=== PATIENT | male | born 1950 | race Caucasian/White ===

== ENCOUNTER 2018-11-22 09:58 | Day surgery (SDC) | payer MEDICARE ==
[~2018-11-22] VITALS: Ht 195.6 cm; Wt 121.1 kg
[~2018-11-22 09:58] MED LIST: BETAPACE 80 MG80 MG PO; COZAAR50 MG PO; METFORMIN HCL500 M1; NEURONTIN800 MG PO; OMEPRAZOLE40 MG PO; PRADAXA150 MG PO
[2018-11-22 10:29] LABS: BASOPHILS 0.2 % (0-2); EOSINOPHILS 0.7 % (0-7); HEMATOCRIT 43.7 % (42.0-54.0); HEMOGLOBIN 14.9 g/dL (13.5-17.5); IMMATURE GRANULOCYTES 0.4 % (0-5); LYMPHOCYTES 36.6 % (15-50); MCH 30.5 pg (26.0-34.0); MCHC 34.1 g/dL (31.0-37.0); MCV 89.4 fL (80.0-100.0); MEAN PLATELET VOLUME 9.5 fL (7.4-10.4); MONOCYTES 7.4 % (2-11); NEUTROPHILS 54.7 % (40-80); PLATELET COUNT 184 10x3/uL (130-400); RBC 4.89 10x6/uL (4.20-6.10); WBC 8.1 10x3/uL (4.8-10.8)
[2018-11-22 10:38] LABS: CALC OSMOLALITY 284 mosm/kg (275-300); CALCIUM 9.2 mg/dL (8.5-10.1); CARBON DIOXIDE 32.5 mmol/L (21.0-32.0); CHLORIDE - SERUM 107 mmol/L (98-107); CREATININE - SERUM 0.9 mg/dL (0.6-1.3); GLUCOSE 153 mg/dL (74-106); POTASSIUM - SERUM 4.4 mmol/L (3.5-5.1); SODIUM 142 mmol/L (136-145); UREA NITROGEN 10 mg/dL (7-18); eGFR NON AFRICAN AMERICAN 89 mL/min (90-120)
[2018-11-22 11:03] VITALS: BP 149/87; Ht 195.6 cm; Wt 121.1 kg
[2018-11-22] MEDS ORDERED: HYDROCODON-ACE1 EA10 PO (13:24)
--- NOTE | 2018-11-22 14:47 | NUR ---
IV REMOVED TOLERATED FULL LIQ. NO PAIN OR NAUSEA
--- NOTE | 2018-11-24 16:09 | OP ---
PATIENT NAME: MARTINA COULTER MEDICAL RECORD: [id number] :48 LOCATION:D.OPS ADMISSION DATE: SURGEON: GEOVANY JUNIOR MD DATE OF OPERATION: 11/22/2018 PREOPERATIVE DIAGNOSES: 1. Gallstones. 2. Ventral hernia. 3. Hypertension. 4. Diabetes mellitus. 5. Atrial fibrillation. POSTOPERATIVE DIAGNOSES: 1. Gallstones. 2. Ventral hernia. 3. Hypertension. 4. Diabetes mellitus. 5. Atrial fibrillation. 6. Acute cholecystitis. PROCEDURES: 1. Laparoscopic cholecystectomy. 2. Ventral hernia repair. SURGEON: Geovany Junior MD REPORT OF PROCEDURE: The patient's abdomen was prepped and draped in sterile fashion. A semicircular incision was made on the inferior aspect of the umbilicus. Electrocautery was used to dissect through the subcutaneous tissues and the hernia defect. The fascial defect was approximately 3 cm in greatest diameter. We freed up the hernia sac to the fascial edges. We then bluntly entered the abdominal cavity and placed #0 Vicryls on the fascia bilaterally. A 12-mm trocar was then inserted and the abdomen was insufflated. Under direct visualization, a 5-mm trocar was placed in the epigastrium and two more 5-mm trocars were placed in the right subcostal region. The gallbladder was elevated and noted to be markedly inflamed with acute inflammatory adhesions present. These were taken down carefully with sharp dissection. We eventually were able to dissect down and get our critical view of safety, seeing the cystic artery and the cystic duct. These were clipped proximally and distally, and ligated in standard fashion. The gallbladder was then taken off the liver bed using electrocautery and placed into an EndoCatch bag. Any bleeding from the liver bed was then treated with electrocautery. We irrigated out the right upper quadrant and assured there was no sign of any bleeding or bile leakage. At this point, the ports and insufflation were then removed. The gallbladder was taken out through the umbilicus. The umbilical fascia where the ventral hernia was present was reapproximated with multiple interrupted #0 Prolenes transversally. The wound was then irrigated out thoroughly with normal saline and the incisions were infused with a total of 20 mL of 0.25% Marcaine plain. The umbilicus and subcutaneous tissues were all tacked down using multiple interrupted 3-0 Vicryls and the skin incisions were closed with running subcutaneous 3-0 Monocryl. COMPLICATIONS: None. CONDITION: Stable. OPERATIVE REPORT [id number] MARTINA COULTER ANESTHESIA: General endotracheal and local. BLOOD LOSS: Minimal. TRANSINT:[id number] Voice Confirmation ID: [id number] DOCUMENT ID: [id number] GEOVANY JUNIOR MD at 1609 CC: LYLA WARD MD [id number] DICTATION DATE: 11/22/18 1329 TRADE PROMOTION ANALYST: 11/22/18 1402 [facility] [place] 11/22/18 [facility] [address] [place] [address]
== END 2018-11-22 15:48 | disposition home or self-care (01) ==
LOC: D.OPS 09:58 → D.PAN 12:00 → D.OPS 15:48
PROVIDERS: ATTEND Surgery
DX: K80.12 Calculus of gallbladder with acute and chronic cholecystitis without obstruction (principal); K43.9 Ventral hernia without obstruction or gangrene; I10 Essential (primary) hypertension; E11.9 Type 2 diabetes mellitus without complications; I48.91 Unspecified atrial fibrillation; Z01.812 Encounter for preprocedural laboratory examination

== ENCOUNTER → 2019-05-19 09:36 | Outpatient (CLI) | payer MEDICARE ==
[2018-11-22 11:03] VITALS: BMI 31.7
[~2019-05-19 09:36] MED LIST changes: +GLUCOPHAGE500 MG PO; +HYDROCODON-ACE1 EA10 PO
== END ==
LOC: D.HCCARDIO 09:30
PROVIDERS: ATTEND Internal Medicine Cardiovascular Disease
DX: I48.91 Unspecified atrial fibrillation (principal)

== ENCOUNTER 2019-06-08 06:31 | Outpatient (CLI) | payer MEDICARE ==
[~2019-06-08] VITALS: Ht 193 cm; Wt 122.7 kg
--- NOTE | ~2019-06-08 | HEMODYNAMI ---
PATIENT:MARTINA COULTER MEDICAL RECORD: [id number] : 48 LOCATION:DJdCAT ADMISSION DATE: 06/08/19 Generatedon:06/08/20199:02 Patient name: MARTINA COULTER Patient #: [id number] : 1950 Date of study: 06/08/2019 Page: Of Hemodynamic Procedure Report Patient Data Patient Demographics Procedure consent was obtained First Name: MARTINA Gender: Male Last Name: YFN : 1950 Middle Initial: C Age: 68 year(s) Patient #: [id number] Race: Unknown SSN: [id number] Additional ID: [id number] Contact details [address]: [address] [place] [address] State: [place] City: [place] Zip code: [address] Past Medical History Allergies: No known allergies Admission Admission Data Admission Date: 06/08/2019 Admission Time: 6:31 Arrival Date: 06/08/2019 Arrival Time: 0:00 Admit Source: Other Insurance Payor: Medicare, Private health insurance [facility] #: [id number] Height (in.): 75.98 BSA: 2.51 (m2) Height (cm.): 193 BMI: 32.75 (kg/m2) Weight (lbs.): 268.97 Weight (kg.): 122 Lab Results Lab Result Date: 06/08/2019 Lab Result Time: 0:00 Biochemistry Name Units Result Min Max BUN mg/dl 10 --(-*--)-- 7 18 Creatinine mg/dl 0.8 --(-*--)-- 0.6 1.3 CBC Name Units Result Min Max Hemoglobin g/dl 15.4 --(-*--)-- 13.5 17.5 Procedure Procedure Types Cath Procedure Diagnostic Procedure LHC LHC w/Coronaries Procedure Description Procedure Date Procedure Date: 06/08/2019 Procedure Start Time: 8:44 Procedure End Time: 8:59 Procedure Staff Name Function Franklyn White MD Performing Physician Amee Yarbrough RN Radiology Physician Assistant Yue Stark RT Monitor Marilee Reynolds RT Scrub Procedure Data Cath Procedure Fluoroscopy Diagnostic fluoroscopy Total fluoroscopy Time: 3.5 time: 3.5 min min Diagnostic fluoroscopy Total fluoroscopy dose: 913 dose: 913 mGy mGy Contrast Material Contrast Material Type Amount (ml) Isovue 300 51 Entry Location Entry Primary Successful Side Size Upsize Upsize Entry Closure Moreno ccessful Closure Location (Fr) 1 (Fr) 2 (Fr) Remarks Device Remarks Radial Right 6 Fr Mechanical artery Short Compression Estimated blood loss: 5 ml Diagnostic catheters Device Type Used For End Catheter Placement DIAGNOSTIC Kenji 110cm Procedure 5Fr catheter ([id number]) DIAGNOSTIC AR MOD 5Fr Procedure Catheter ([id number]) Procedure Complications No complications Procedure Medications Medication Administration Route Dosage 0.9% NaCl I.V. 100 ml/hr Oxygen etCO2 Nasal cannula 2 l/min Lidocaine 2% added to field 20 Heparin Flush Bag added to field 2 bags (1000units/500ml NS) Radial Cocktail added to field 1 syringe (Verapamil 2mg/Nitro 400mcg/Heparin 1500units) Versed I.V. 2 mg Fentanyl I.V. 50 mcg Fentanyl I.V. 50 mcg Hemodynamics Rest BSA: 2.51 (m2) HGB: 15.4 (g/dl) O2 Consumption: Estimated: 271.35 (ml/min) O2 Co nsumption indexed: Estimated:108.11 (ml/min/m) Heart Rate: 49 (bpm) Pressure Samples Time Site Value (mmHg) Purpose Heart Use Rate(bpm) 8:48 LV 123/4,7 Snapshot 68 8:49 LV 111/3,7 Snapshot 72 Gradients Valve Time Site Site Mean SEP/DFP Peak To Heart Use 1 2 (mmHg) (sec/min) Peak Rate (mmHg) (bpm) Aortic 8:49 LV AO 75 Snapshots Pre Cath Intra NCS Post Cath Vital Signs Time Heart Resp SPO2 etCO2 NIBP (mmHg) Rhythm Pain Sedation Rate (ipm) (%) (mmHg) Status Level (bpm) 8:27:42 58 21 99 32.3 135/81(110) A-Fib 0 (11) 10(A) , No pain 8:31:46 54 17 93 30.8 132/86(121) A-Fib 0 (11) 10(A) , No pain 8:36:00 60 15 90 34.6 122/80(105) A-Fib 0 (11) 10(A) , No pain 8:40:12 52 12 96 42.1 125/80(91) A-Fib 0 (11) 10(A) , No pain 8:44:12 55 13 96 23.3 102/90(95) A-Fib 0 (11) 10(A) , No pain 8:49:11 100 12 97 39.8 Measuring A-Fib 0 (11) 9(A) , No pain 8:49:13 104 12 96 39.8 117/69(90) A-Fib 0 (11) 9(A) , No pain 8:53:25 67 11 93 7.5 111/69(82) A-Fib 0 (11) 10(A) , No pain 8:57:36 57 10 95 39.1 112/74(88) A-Fib 0 (11) 10(A) , No pain Medications Time Medication Route Dose Verified Delivered Reason Notes Ef fectiveness by by 8:27:21 0.9% NaCl I.V. 100 Franklyn Amee used for ml/hr Christopher Yarbrough overnight caregiver 8:27:27 Oxygen etCO2 2 l/min Franklyn Amee used for Nasal Christopher Yarbrough procedure cannula RN 8:27:32 Lidocaine 2% added 20ml Franklyn Franklyn for local to vial Christopher White MD anesthetic field 8:27:37 Heparin Flush added 2 bags Franklyn Franklyn used for Bag to Christopher White MD procedure (1000units/500ml field NS) 8:27:43 Radial Cocktail added 1 Franklyn Franklyn used for (Verapamil to syringe Christopher White MD procedure 2mg/Nitro field 400mcg/Heparin 1500units) 8:43:20 Versed I.V. 2 mg Franklyn Amee for Christopher Yarbrough sedation RN 8:43:32 Fentanyl I.V. 50 mcg Franklyn Amee for Christopher Yarbrough sedation RN 8:47:47 Fentanyl I.V. 50 mcg Franklyn Amee for Christopher Yarbrough sedation store operations associate Log Time Note 8:18:29 Admit Source: Other 8:18:34 Patient Height : 75.98 inches 8:18:38 Patient Weight : 268.97 lbs 8:18:46 Insurance Payor : Private health insurance, Medicare 8:18:50 Arrival Date: 06/08/2019 12:00:00 AM 8:26:36 Vital chart was started 8:26:49 Diagnostic Cath Status : Elective 8:27:21 0.9% NaCl 100 ml/hr I.V. was administered by Amee Yarbrough RN; used for procedure; Verbal order read back and verified. 8:27:27 Oxygen 2 l/min etCO2 Nasal cannula was administered by Amee Yarbrough RN; used for procedure; Verbal order read back and verified. 8:27:32 Lidocaine 2% 20ml vial added to field was administered by Franklyn White MD; for local anesthetic; Verbal order read back and verified. 8:27:37 Heparin Flush Bag (1000units/500ml NS) 2 bags added to field was administered by Franklyn White MD; used for procedure; Verbal order read back and verified. 8:27:43 Radial Cocktail (Verapamil 2mg/Nitro 400mcg/Heparin 1500units) 1 syringe added to field was administered by Franklyn White MD; used for procedure; Verbal order read back and verified. 8:33:26 Lab Result : Hemoglobin 15.4 g/dl 8:33:26 Lab Result : Creatinine 0.8 mg/dl 8:33:26 Lab Result : BUN 10 mg/dl 8:34:34 Procedure Status Elective Heart Cath (OP). 8:34:39 Amee Yarbrough RN sent for patient. Start room use. 8:35:15 Time tracking: Regular hours (M-F 7:00 - 5:00) 8:35:20 Plan of Care:Hemodynamics will remain stable., Cardiac rhythm will remain stable., Comfort level will be maintained., Respiratory function will remain adequate., Patient/ family verbilizes understanding of procedure., Procedure tolerated without complication., Recovers from procedure without complications.. 8:35:31 Patient received from Pre/Post Procedure Room to CCL 2 Alert and oriented. Tansferred to table in Supine position. 8:35:37 Signed procedure consent form obtained from patient. 8:35:38 Warm blankets applied, and yoshi hugger turned on for patient comfort. 8:35:39 Correct patient and procedure confirmed by team. 8:35:39 ECG and BP/O2 sat monitors applied to patient. 8:35:40 Baseline sample Acquired. 8:35:47 Rhythm: atrial fibrillation 8:35:49 Full Disclosure recording started 8:35:54 H&P Date Dictated: 06/08/2019 Within 30 days and on chart., H&P Addendum completed by physician on day of procedure. (MUST COMPLETE FOR ALL OUTPATIENTS). 8:35:56 Pre-procedure instructions explained to patient. 8:35:58 Family in waiting room. 8:35:59 Patient NPO since Midnight. 8:36:06 Patient allergic to No known allergies 8:36:10 Is the patient allergic to Iodine/contrast media? No. 8:36:11 Was the patient premedicated? Yes 8:36:13 Is patient on blood thinner?Yes 8:36:52 Pradaxa 2 days ago. 8:37:16 Patient diabetic? Yes. 8:37:21 If diabetic: On Metformin? Yes 8:37:31 If on Metformin: Last Dose? 06/07/2019 8:37:38 Snore? Yes 8:37:39 Sleep apnea? No 8:37:44 Dentures? No ? 8:37:48 Patient pain scale 0/10 ?. 8:38:40 IV patent on arrival in left forearm with 0.9% NaCl at [facility]. 8:38:48 Lab results completed and on chart. 8:42:02 Stress Test: yes; abnormal inferior and apical 8:42:07 Right Radial & Right Groin area was prepped with chlora-prep and draped in sterile fashion 8:42:08 Alarms reviewed by R. N. 8:42:08 Sharps counted by scrub and verified by R.N. 8:42:11 Physician arrived 8:42:11 --------ALL STOP TIME OUT------ 8:42:12 Final Timeout: patient, procedure, and site verified with staff and physician. All members of the team are in agreement. 8:42:13 Right Radial & Right Groin site verified by team. 8:42:20 Fire Safety Assessment: A--An alcohol-based skin anteseptic being used preoperatively., C--Open oxygen or nitrous oxide is being used., D--An ESU, laser, or fiber-optic light is being used. 8:42:24 Physical assessment completed. ASA score P 2 - A patient with mild systemic disease as per Franklyn White MD. 8:42:27 1) 90+ Normal kidney functon but urine findings or structural abnormalities or genetic trait point to kidney disease. 8:42:30 Maximum allowable contrast dose (3.7 X eGFR X 0.75)249 ml. 8:42:34 Sedation plan: IV Moderate Sedation Medication:Versed, Fentanyl 8:43:20 Versed 2 mg I.V. was administered by Amee Yarbrough RN; for sedation; Verbal order read back and verified. 8:43:32 Fentanyl 50 mcg I.V. was administered by Amee Yarbrough RN; for sedation; Verbal order read back and verified. 8:44:08 Use device set Radial Dx or PCI 8:44:11 Procedure started. 8:44:19 ACIST Syringe (45243) opened to sterile field. 8:44:21 Medline Cath Pack ([id number]) opened to sterile field. 8:44:21 Bag Decanter (2002S) opened to sterile field. 8:44:22 ACIST Hand Control (74024) opened to sterile field. 8:44:22 ACIST Manifold (53529) opened to sterile field. 8:44:24 MBrace Wrist Support ([id number]) opened to sterile field. 8:44:25 NEEDLE Cook 21G 4cm Radial (U86344) opened to sterile field. 8:44:27 EMERALD Guide Wire (502-288) opened to sterile field. 8:44:28 SHEATH 6FR RAIN (9389642) opened to sterile field. 8:44:37 Local anesthetic to right radial artery with Lidocaine 2% by Franklyn White MD.INITIAL ACCESS ONLY 8:45:15 A 6 Fr Short sheath was inserted into the Right Radial artery 8:46:54 A DIAGNOSTIC Kenji 110cm 5Fr catheter ([id number]) was advanced over the wire and used for Procedure. 8:47:08 LV angiography performed. 8:47:47 Fentanyl 50 mcg I.V. was administered by Amee Yarbrough RN; for sedation; Verbal order read back and verified. 8:48:15 Zero performed for pressure channel P1 8:48:19 Zero performed for pressure channel P1 8:49:48 LV gram done using JOSEPH 8:49:55 EF : 60 % 8:50:02 LCA angiography performed. 8:52:28 Catheter exchanged over wire. 8:53:11 A DIAGNOSTIC AR MOD 5Fr Catheter ([id number]) was advanced over the wire and used for Procedure. 8:53:19 RCA angiography performed. 8:55:30 Catheter removed. 8:55:42 TR BAND Large ([id number]) opened to sterile field. 8:56:05 Sheath removed intact; hemostasis achieved with Mechanical Compression to the Right Radial artery. 8:56:07 Procedure ended.(Physican Out) 8:56:22 Fluoroscopy time 03.50 minutes. 8:56:27 Fluoroscopy dose: 913 mGy 8:56:27 Flurop Dose total: 913 8:56:38 Dose Area Product 87868 mGy/cm. 8:56:42 Contrast amount:Isovue 300 51ml. 8:56:43 Maximum allowable dose exceeded? No. 8:56:45 Sharps counted by scrub and verified by R.N. 8:57:13 [place] band inflated with 12cc of air. 8:57:18 Insertion/operative site no bleeding no hematoma. 8:57:30 Post right radial artery:unchanged 8:57:32 Post Procedure Pulses reassessed and unchanged 8:57:39 Post-procedure physical assessment completed. ASA score P 2 - A patient with mild systemic disease as per Franklyn Whtie MD. 8:57:45 Post procedure rhythm: unchanged. 8:57:50 Estimated blood loss: 5 ml 8:57:52 Post procedure instruction explained to patient.Patient verbalizes understanding. 8:58:05 Procedure type changed to Cath procedure, Diagnostic procedure, LHC, [facility] w/Coronaries 8:58:08 Procedure and supply charges have been captured, reviewed, submitted and are correct. 8:58:38 Procedure Complication : No complications 8:58:41 Vital chart was stopped 8:58:44 [facility] Findings: mild to moderate CAD (<70%) 8:58:50 See physician's report for complete and final results. 8:58:52 Report given to Pre/Post Procedure Room. 8:59:11 Patient transfered to Pre/Post Procedure Room with Stretcher. 8:59:13 Procedure ended. 8:59:13 Full Disclosure recording stopped 8:59:21 End room use (Document Last) 9:01:08 End room use (Document Last) 9:01:35 End room use (Document Last) Device Usage Item Name Manufacture Quantity Catalog Hospital Part Current Minima l Lot# / Number Charge Number Stock Stock Serial# Code ACIST Acist 1 43392 [id number] [id number] 20 Syringe Medical (26270) Systems Inc Medline Medline 1 [id number] 917402 28479 527077 5 Cath Pack ([id number]) Bag Microtek 1 2001S 072719 51637 918184 5 Decanter Medical Inc. () ACIST Hand Acist 1 32902 654534 623696 110349 5 Control Medical (62620) Systems Inc ACIST Acist 1 15952 049506 617045 954634 5 Manifold Medical (63907) Systems Inc MBrace Advanced 1 140-0250-00 021118 49433 109241 5 Wrist Vascular Support Dynamics ([id number]) NEEDLE Cook Cook Medical 1 [id number] 174322 026344 167394 5 21G 4cm Radial (W73668) EMERALD Cardinal 1 502-455 946814 436938 309805 5 Guide Wire Health (502455) SHEATH 6FR Cardinal 1 9154539 373569 9932853 709714 5 [facility] Health (7898173) DIAGNOSTIC Terumo 1 40-5023 169479 020451 657474 5 Kenji 110cm 5Fr catheter (328376) DIAGNOSTIC Cardinal 1 [id number] 396812 455812 880596 15 AR MOD 5Fr Health Catheter (769783Z) TR BAND Terumo 1 [id number] 305699 828794 133624 40 Large ([id number]) Signature Audit [place] Stage Time Signature Unsigned Intra-Procedure 06/08/2019 Yue Stark 9:01:09 AM RT(R) Intra-Procedure 06/08/2019 Amee Yarbrough 9:01:35 AM RN Intra-Procedure 06/08/2019 Franklyn White MD 9:02:04 AM Signatures Performing Physician : Signature : Franklyn White MD Date : Time : Monitor : Yue Stark Signature : RT Date : Time : [address] [place] [address]
[~2019-06-08 06:31] MED LIST changes: -GLUCOPHAGE500 MG PO
[2019-06-08] MEDS ORDERED: GLUCOPHAGE500 MG PO (06:49)
[2019-06-08 07:10] VITALS: BP 121/82; Ht 193 cm; Wt 122.7 kg
[2019-06-08 07:15] LABS: BASOPHILS 0.5 % (0-2); EOSINOPHILS 1.1 % (0-7); HEMOGLOBIN 15.4 g/dL (13.5-17.5); IMMATURE GRANULOCYTES 0.3 % (0-5); LYMPHOCYTES 44.7 % (15-50); MCH 31.2 pg (26.0-34.0); MCHC 34.2 g/dL (31.0-37.0); MCV 91.1 fL (80.0-100.0); MEAN PLATELET VOLUME 9.7 fL (7.4-10.4); MONOCYTES 6.3 % (2-11); NEUTROPHILS 47.1 % (40-80); PLATELET COUNT 178 10x3/uL (130-400); RBC 4.94 10x6/uL (4.20-6.10); WBC 6.3 10x3/uL (4.8-10.8)
[2019-06-08 07:31] LABS: ALT (SGPT) 26 U/L (10-68); CALC OSMOLALITY 281 mosm/kg (275-300); CALCIUM 8.7 mg/dL (8.5-10.1); CARBON DIOXIDE 25.2 mmol/L (21.0-32.0); CHLORIDE - SERUM 106 mmol/L (98-107); CHOL - HDL RATIO 4.1 ratio (2.3-4.9); CHOLESTEROL, TOTAL 144 mg/dL (0-200); CREATININE - SERUM 0.8 mg/dL (0.6-1.3); GLUCOSE 194 mg/dL (74-106); HDL CHOLESTEROL 35 mg/dL (32-96); LDL CHOLESTEROL 76 mg/dL (0-100); LDL-HDL RATIO 2.2 ratio (1.5-3.5); POTASSIUM - SERUM 4.2 mmol/L (3.5-5.1); SODIUM 139 mmol/L (136-145); TRIGLYCERIDE 165 mg/dL (30-200); UREA NITROGEN 10 mg/dL (7-18); eGFR NON AFRICAN AMERICAN > 90 mL/min (90-120)
--- NOTE | 2019-06-08 09:08 | NUR ---
PT ARRIVED BY STRETCHER. PLACED ON MONITORS. FAMILY AT BEDSIDE. CALL LIGHT WITHIN REACH. ASSESSMENT COMPLETED. SET UP WITH SANDWICH TRAY AND DRINK.
--- NOTE | 2019-06-08 09:22 | NUR ---
PT MORE ALERT. SITTING UP AND TOLERATING FOOD AND DRINK. DENIES NAUSEA/PAIN AT THIS TIME. RIGHT WRIST TR BAND IN PLACE. NO BLEEDING/HEMATOMA NOTED. CALL LIGHT WITHIN REACH.
--- NOTE | 2019-06-08 09:55 | NUR ---
PT SITTING UP WATCHING TELEVISION. RIGHT WRIST TR BAND IN PLACE. NO BLEEDING/HEMATOMA NOTED. CALL LIGHT WITHIN REACH. FAMILY AT BEDSIDE. VSS. NO NEEDS AT THIS TIME. DENIES NAUSEA/PAIN.
--- NOTE | 2019-06-08 10:18 | NUR ---
2cc OF AIR REMOVED FROM TR BAND. TOLERATING WELL. NO BLEEDING/HEMATOMA NOTED. CALL LIGHT WITHIN REACH. NO NEEDS AT THIS TIME. VSS.
--- NOTE | 2019-06-08 10:33 | NUR ---
3cc OF AIR REMOVED FROM TR BAND. NO BLEEDING/HEMATOMA NOTED. CALL LIGHT WITHIN REACH. VSS.
--- NOTE | 2019-06-08 10:48 | NUR ---
4cc OF AIR REMOVED FROM TR BAND. NO BLEEDING/HEMATOMA NOTED. CALL LIGHT WITHIN REACH. FAMILY AT BEDSIDE. VSS. DR. KENNEY ROUNDED AND SPOKE WITH PT AND PT'S FAMILY.
--- NOTE | 2019-06-08 11:05 | NUR ---
TR BAND REMOVED AND DRESSING APPLIED. NO BLEEDING/HEMATOMA NOTED. PIV D/C'D WITH CATH TIP INTACT. TOLERATED WELL. VSS. RIGHT WRIST BRACE IN PLACE. PT INSTRUCTED TO KEEP ON FOR APPROX 2 HOURS AFTER ARRIVAL HOME. PT INSTRUCTED TO GET UP AND DRESSED. FAMILY AT BEDSIDE TO ASSIST.
--- NOTE | 2019-06-08 11:20 | NUR ---
DISCUSSED DISCHARGE INSTRUCTIONS WITH PT AND PT'S FAMILY. THEY VOICED UNDERSTANDING.
--- NOTE | 2019-06-08 11:25 | NUR ---
PT AMBULATED TO RESTROOM. VOIDED WITHOUT DIFFICULTY. PT TAKEN OUT TO VEHICLE BY WHEELCHAIR. NO S/S OF DISTRESS NOTED. RIGHT WRIST DRESSING C/D/I. NO S/S OF HEMATOMA NOTED. ALL BELONGINGS AND PAPERWORK IN HAND.
== END 2019-06-08 11:25 | disposition home or self-care (01) ==
LOC: D.CATH 06:31
PROVIDERS: ATTEND Internal Medicine Cardiovascular Disease
DX: R94.30 Abnormal result of cardiovascular function study, unspecified (principal); I10 Essential (primary) hypertension; E11.9 Type 2 diabetes mellitus without complications; I48.91 Unspecified atrial fibrillation

== ENCOUNTER 2019-11-16 11:17 | Outpatient (CLI) | payer MEDICARE ==
[~2019-11-16] VITALS: Ht 193 cm; Wt 120.0 kg
--- NOTE | ~2019-11-16 | HEMODYNAMI ---
PATIENT:MARTINA COULTER MEDICAL RECORD: [id number] : 48 LOCATION:[facility]CAT ADMISSION DATE: 11/16/19 Generatedon:11/16/201914:03 Patient name: MARTINA COULTER Patient #: [id number] : 1950 Date of study: 11/16/2019 Page: Of Hemodynamic Procedure Report Patient Data Patient Demographics Procedure consent was obtained First Name: MARTINA Gender: Male Last Name: YFN : 1950 Middle Initial: C Age: 68 year(s) Patient #: [id number] Race: SSN: [id number] Additional ID: [id number] Contact details Address: [address] [place] [address] State: [place] City: [place] Zip code: [address] Past Medical History Allergies: No known allergies Admission Admission Data Admission Date: 11/16/2019 Admission Time: 11:17 Arrival Date: 11/16/2019 Arrival Time: 13:00 Admit Source: Other Insurance Payor: Medicare [facility] #: [id number] Height (in.): 75.98 BSA: 2.49 (m2) Height (cm.): 193 BMI: 32.22 (kg/m2) Weight (lbs.): 264.56 Weight (kg.): 120 Lab Results Lab Result Date: 11/16/2019 Lab Result Time: 0:00 Biochemistry Name Units Result Min Max BUN mg/dl 13 --(--*-)-- 7 18 Creatinine mg/dl 0.9 --(-*--)-- 0.6 1.3 eGFR ml/min 90 --(*---)-- 90 120 NONAFRICAN CBC Name Units Result Min Max Hemoglobin g/dl 15.1 --(-*--)-- 13.5 17.5 Procedure Procedure Types Cath Procedure Diagnostic Procedure LHC LHC w/Coronaries Sedation Charges Procedure Description Procedure Date Procedure Date: 11/16/2019 Procedure Start Time: 13:18 Procedure End Time: 14:00 Procedure Staff Name Function Quincy Small MD Performing Physician Kate Cooper RT Monitor Marilee Reynolds RT Scrub Chad Renae RN Nurse Justin Dempsey MD Assisting physician Indication Sick Sinus Syndrome Procedure Data Cath Procedure Fluoroscopy Diagnostic fluoroscopy Total fluoroscopy Time: 2.7 time: 2.7 min min Diagnostic fluoroscopy Total fluoroscopy dose: 0 dose: 0 mGy mGy Contrast Material Contrast Material Type Amount (ml) Isovue 300 0 Estimated blood loss: 5 ml Procedure Complications No complications Procedure Medications Medication Administration Route Dosage Oxygen etCO2 Nasal cannula 2 l/min Lidocaine 1% added to field 20 Ancef (1Gm/50ml NS) I.V.P.B 1 g Ancef Irrigation Topical 1 g (1gm/500ml NS) Versed I.V. 1 mg Fentanyl I.V. 50 mcg Versed I.V. 1 mg Fentanyl I.V. 50 mcg Versed I.V. 1 mg Versed I.V. 1 mg Hemodynamics Rest BSA: 2.49 (m2) HGB: 15.1 (g/dl) O2 Consumption: Estimated: 283.43 (ml/min) O2 Co nsumption indexed: Estimated:113.83 (ml/min/m) Heart Rate: 64 (bpm) Snapshots Pre Cath Intra NCS Post Cath Vital Signs Time Heart Resp SPO2 etCO2 NIBP (mmHg) Rhythm Pain Sedation Rate (ipm) (%) (mmHg) Status Level (bpm) 13:01:23 63 15 100 0 139/76(116) A-Fib (Missing) 10(A) 13:05:19 65 14 99 0 140/87(102) A-Fib (Missing) 10(A) 13:09:14 61 25 100 34.5 122/86(99) A-Fib (Missing) 10(A) 13:13:45 62 18 98 25.5 145/77(100) A-Fib (Missing) 10(A) 13:18:13 63 15 95 4.5 133/79(106) A-Fib (Missing) 9(A) 13:22:11 60 17 94 39.8 139/80(104) A-Fib (Missing) 9(A) 13:26:35 56 15 94 29.2 134/82(104) A-Fib (Missing) 10(A) 13:30:32 54 11 96 0 127/73(96) A-Fib (Missing) 9(A) 13:34:28 61 15 98 34.5 135/82(101) A-Fib (Missing) 9(A) 13:38:26 56 12 98 0 130/75(107) A-Fib (Missing) 9(A) 13:42:19 58 16 98 33 135/86(106) A-Fib (Missing) 9(A) 13:46:17 24 12 100 12 127/78(95) A-Fib (Missing) 10(A) 13:50:12 50 14 100 32.2 136/80(109) A-Fib (Missing) 10(A) 13:54:10 58 13 100 39 126/79(95) A-Fib (Missing) 10(A) 13:58:01 51 15 100 39 130/89(114) A-Fib (Missing) 10(A) Medications Time Medication Route Dose Verified Delivered Reason Notes Effectiv eness by by 13:00:12 Oxygen etCO2 2 Quincy Buffie used for Nasal l/min St Alejandro Renae RN procedure cannula 13:00:29 Lidocaine added 20ml Quincy Hindu for local 1% to vial St Alejandro Peters MD anesthetic field x 2 13:00:59 Ancef I.V.P.B 1 g Quincy Hindu used for (1Gm/50ml St Alejandro Peters MD procedure NS) 13:01:10 Ancef Topical 1 g Quincy Hindu used for Irrigation St Alejandro Peters MD procedure (1gm/500ml NS) 13:14:27 Versed I.V. 1 mg Quincy Buffie for GeovannyAlejandro Renae RN sedation 13:14:33 Fentanyl I.V. 50 Quincy Buffie [place] [facility] [place]ovanny[place] Renae RN sedation 13:19:43 Versed I.V. 1 mg Quincy Buffie for GeovannyAlejandro Renae RN sedation 13:19:47 Fentanyl I.V. [address] Quincy Buff[address] mcg [address] Alejandro Renae RN sedation 13:24:52 Versed I.V. 1 mg Quincy Buffie for GeovannyAlejandro Renae RN sedation 13:28:20 Versed I.V. 1 [address] St Alejandro Renae RN sedation Procedure Log Time Note 12:40:50 Called and spoke with Porsha, spouse of pt and update given. 12:41:12 Diagnostic Cath Status : Elective 12::40 Indication : Sick Sinus Syndrome 12::57 Informed consent obtained and on chart 12:49:38 Admit Source: Other 12:49:40 Arrival Date: 11/16/2019 1:00:00 PM 12:50:15 Insurance Payor : Medicare 12:50:20 Patient Height : 75.98 inches 12:50:23 Patient Weight : 264.56 lbs 12:50:31 Procedure Status PPM/ Gen Change/ Lead Revision/ Temp. 12:50:49 Time tracking: Regular hours (M-F 7:00 - 5:00) 12:50:50 Chad Renae RN sent for patient. Start room use. 12:50:56 Plan of Care:Hemodynamics will remain stable., Cardiac rhythm will remain stable., Comfort level will be maintained., Respiratory function will remain adequate., Patient/ family verbilizes understanding of procedure., Procedure tolerated without complication., Recovers from procedure without complications.. 12:59:57 Vital chart was started 13:00:12 Oxygen 2 l/min etCO2 Nasal cannula was administered by Chad Renae RN; used for procedure; Verbal order read back and verified. 13:00:29 Lidocaine 1% 20ml vial x 2 added to field was administered by Nikunj Peters MD; for local anesthetic; Verbal order read back and verified. 13:00:59 Ancef (1Gm/50ml NS) 1 g I.V.P.B was administered by Nikunj Peters MD; used for procedure; Verbal order read back and verified. 13:01:10 Ancef Irrigation (1gm/500ml NS) 1 g Topical was administered by Nikunj Peters MD; used for procedure; Verbal order read back and verified. 13:03:03 Patient received from Pre/Post Procedure Room to CCL 3 Alert and oriented. Tansferred to table in Supine position. 13:03:05 Warm blankets applied, and yoshi hugger turned on for patient comfort. 13:03:05 Correct patient and procedure confirmed by team. 13:03:06 Baseline sample Acquired. 13:03:06 ECG and BP/O2 sat monitors applied to patient. 13:03:11 Rhythm: atrial fibrillation 13:03:13 Full Disclosure recording started 13:03:16 H&P Date Dictated: 11/16/2019 Within 30 days and on chart., H&P Addendum completed by physician on day of procedure. (MUST COMPLETE FOR ALL OUTPATIENTS). 13:03:18 Pre-procedure instructions explained to patient. 13:03:18 Pre-op teaching completed and patient verbalized understanding. 13:03:21 Family unavailable. 13:03:22 Patient NPO since Midnight. 13:03:24 Is the patient allergic to Iodine/contrast media? No. 13:03:25 Was the patient premedicated? Yes 13:03:26 Is patient on blood thinner?Yes 13:04:04 Patient states last dose of pradaxa taken on 11/12/2019 13:04:07 Patient diabetic? Yes. 13:04:08 If diabetic: On Metformin? Yes 13:04:11 If on Metformin: Last Dose? 11/16/2019 13:04:14 Previous problem with sedation/anesthesia? No ? 13:04:15 Snore? Yes 13:04:17 Sleep apnea? No 13:04:17 Deviated septum? No 13:04:18 Opens mouth fully? Yes 13:04:19 Sticks out tongue? Yes 13:04:22 Airway obstruction? No ? 13:04:24 Dentures? No ? 13:04:28 Pre procedure: right dorsailis pedis pulse 2+ Normal; easily identifiable; not easily obliterated 13:04:33 Pre procedure: left dorsailis pedis pulse 2+ Normal; easily identifiable; not easily obliterated 13:04:36 Patient pain scale 0/10 ?. 13:04:42 IV patent on arrival in left forearm with 0.9% NaCl at [facility]. 13:05:19 Lab Result : BUN 13 mg/dl 13:05:19 Lab Result : Creatinine 0.9 mg/dl 13:05:19 Lab Result : eGFR NONAFRICAN 90 ml/min 13:05:19 Lab Result : Hemoglobin 15.1 g/dl 13:05:22 Lab results completed and on chart. 13:05:28 Left chest area was prepped with chlora-prep and draped in sterile fashion 13:05:29 Alarms reviewed by R. N. 13:05:30 Sharps counted by scrub and verified by R.N. 13:06:[address] Generator [id number] opened to sterile field. 13:06:55 Medtronic 4074-58 PPM Lead opened to sterile field. 13:08:01 Medtronic 4574-53 PPM Lead opened to sterile field. 13:12:33 Physician arrived 13:12:34 --------ALL STOP TIME OUT------ 13:12:34 Final Timeout: patient, procedure, and site verified with staff and physician. All members of the team are in agreement. 13:12:40 Left chest site verified by team. 13:12:44 Fire Safety Assessment: A--An alcohol-based skin anteseptic being used preoperatively., C--Open oxygen or nitrous oxide is being used., D--An ESU, laser, or fiber-optic light is being used. 13:12:47 Physical assessment completed. ASA score P 2 - A patient with mild systemic disease as per Quincy Small MD. 13:12:52 Sedation plan: IV Moderate Sedation Medication:Versed, Fentanyl 13:13:09 Use device set SANDI PPM 13:13:11 2-0 Ticron Multipack ([id number]) opened to sterile field. 13:13:16 Cautery Tip Emblem Fuser Tender opened to sterile field. 13:13:17 Cautery Pushbutton Pencil opened to sterile field. 13:13:18 Mepilex Dressing (115943) opened to sterile field. 13:13:33 Immobilizer Extra Large opened to sterile field. 13:14:27 Versed 1 mg I.V. was administered by Chad Renae RN; for sedation; Verbal order read back and verified. 13:14:33 Fentanyl 50 mcg I.V. was administered by hCad Renae RN; for sedation; Verbal order read back and verified. 13:17:20 Procedure started. 13:17:57 Medtronic loss control representative Evan Babcock present for procedure. 13:18:24 Pre sharps counted by scrub and verified by RN: Sutures: 14; Sponges: 5; Stick needles: 2; Skin needles: 2; Blade: 1; Cautery: 1 13:18:26 Grounding pad site Left thigh. 13:18:28 Grounding pad site free from injury. 13:18:33 Lidocaine 1% was administered to left subclavicular area by Quincy Small MD . 13:19:01 Incision made to left subclavicular area. 13:19:43 Versed 1 mg I.V. was administered by Chad Renae RN; for sedation; Verbal order read back and verified. 13:19:47 Fentanyl 50 mcg I.V. was administered by Chad Renae RN; for sedation; Verbal order read back and verified. 13:20:15 Generator pocket made/opened. 13:24:24 Left subclavian vein accessed with 9Fr Peel Away Sheath. 13:24:52 Versed 1 mg I.V. was administered by Chad Renae RN; for sedation; Verbal order read back and verified. 13:25:09 Ventricular lead inserted and advanced. 13:25:12 Atrial lead inserted and advanced. 13:27:29 Ventricular lead positioned. 13:27:31 Atrial lead positioned. 13:28:20 Versed 1 mg I.V. was administered by Chad Renae RN; for sedation; Verbal order read back and verified. 13:32:29 Peel-a-way sheath was split and removed. 13:32:37 PPM Dual was attached to lead(s) and inserted into pocket. 13:32:53 Atrial lead attachment was completed with 2-0 ticron. 13:33:06 Ventricular lead attachment was completed with 2-0 ticron. 13:33:12 Device pocket was irrigated with Ancef. 13:33:23 PPM Dual was inserted subcutaneously to left chest. 13:33:58 Generator was sutured in place with 2-0 ticron. 13:34:11 Subcutaneous closure was completed with 3-0 vicryl plus. 13:34:44 5-0 Monocryl PS2 [id number] opened to sterile field. 13:35:45 3-0 Vicryl Multipack [id number] opened to sterile field. 13:39:21 Lt Chest incision was dressed with Mepilex dressing. 13:41:52 Parameters-- Generator: Mode: DDDR. Lower Rate: 60bpm. Upper Rate: 120bpm. 13:42:14 Parameters--Ventricular P/R Wave: 9.7mV. Current: 0.2mA; Threshold: 0.2V; Impedence: 811OHMS. 13:42:38 Parameters--Atrial P/R Wave: 1.2mV. Current: 0.4mA; Threshold: ?V; Impedence: 477OHMS. 13:45:26 2-0 Ticron Multipack ([id number]) opened to sterile field. 13:58:01 Procedure ended.(Physican Out) 13:58:42 Fluoroscopy time 02.70 minutes. 13:58:48 Fluoroscopy dose: 0 mGy 13:58:48 Flurop Dose total: 0 13:58:54 Dose Area Product 2855 mGy/cm. 13:58:57 Contrast amount:Isovue 300 0ml. 13:58:59 Maximum allowable dose exceeded? No. 13:59:00 Sharps counted by scrub and verified by R.N. 13:59:01 Insertion/operative site no bleeding no hematoma. 13:59:11 Post procedure rhythm: paced 13:59:14 Estimated blood loss: 5 ml 13:59:15 Post procedure instruction explained to patient.Patient verbalizes understanding. 13:59:16 Patient needs reinforcement of post procedure teaching. 13:59:40 Procedure type changed to Cath procedure, Diagnostic procedure, LHC, LHC w/Coronaries, Sedation Charges 14:00:10 Procedure and supply charges have been captured, reviewed, submitted and are correct. 14:00:17 Procedure Complication : No complications 14:00:19 Vital chart was stopped 14:00:27 Operative report dictated upon procedure completion. 14:00:27 See physician's report for complete and final results. 14:00:29 Report given to Pre/Post Procedure Room. 14:00:32 Patient transfered to Pre/Post Procedure Room with Stretcher. 14:00:34 Procedure ended. 14:00:34 Full Disclosure recording stopped 14:00:39 End room use (Document Last) Device Usage Item Name Manufacture Quantity Catalog Hospital Part Current Minima l Lot# / Number Charge Number Stock Stock Serial# Code Medtronic Medtronic 1 [id number] [id number] [id number] EXP Generator 02/13/2020 [id number] Medtronic Medtronic 1 4074-58 374499 [id number] [id number] 5 [id number] 4074-58 PPM EXP Lead 03/28/2021 Medtronic Medtronic 1 4574-53 [id number] 601266 [id number] 5 [id number] 4574-53 PPM EXP Lead 03/03/2021 2-0 Ticron Ethicon 2 [id number] 783731 86546 021537 5 Multipack ([id number]) Cautery Tip Microtek 1 [id number] 387234 222351 [id number] 5 Emblem Fuser [employer] Cautery Microtek 1 [id number] 027844 64275 [id number] 5 Pushbutton [employer] Pencil Mepilex Cardinal 1 760254 481684 227097 446395 5 Dressing Health (059507) Immobilizer Cardinal 1 [id number] 336697 761510 628667 5 Extra Large Health 5-0 Monocryl Ethicon 1 Y495G 607382 325388 038952 5 PS2 Y495G 3-0 Vicryl Ethicon 1 [id number] 905897 353596 890766 5 Multipack [id number] Signature Audit [place] Stage Time Signature Unsigned Intra-Procedure 11/16/2019 Kate Cooper 2:02:30 PM RT(R) Intra-Procedure 11/16/2019 Chad Renae RN 2:03:01 PM Intra-Procedure 11/16/2019 Quincy Mccord 2:03:39 PM [facility] [address] [place] [address]
[~2019-11-16 11:17] MED LIST changes: +GLUCOPHAGE500 MG PO
[2019-11-16 11:58] VITALS: BP 155/64; Ht 193 cm; Wt 120.0 kg
[2019-11-16 12:02] LABS: HEMATOCRIT 45.2 % (42.0-54.0); HEMOGLOBIN 15.1 g/dL (13.5-17.5); MCH 30.5 pg (26.0-34.0); MCHC 33.4 g/dL (31.0-37.0); MCV 91.3 fL (80.0-100.0); MEAN PLATELET VOLUME 9.6 fL (7.4-10.4); RBC 4.95 10x6/uL (4.20-6.10); RDW 13.4 % (11.5-14.5); WBC 6.9 10x3/uL (4.8-10.8)
[2019-11-16 12:07] LABS: APTT 28.9 SECONDS (22.8-39.4); CALC OSMOLALITY 281 mosm/kg (275-300); CALCIUM 9.1 mg/dL (8.5-10.1); CARBON DIOXIDE 27.8 mmol/L (21.0-32.0); CHLORIDE - SERUM 103 mmol/L (98-107); CREATININE - SERUM 0.9 mg/dL (0.6-1.3); GLUCOSE 177 mg/dL (74-106); INR 0.98 (0.85-1.17); POTASSIUM - SERUM 4.2 mmol/L (3.5-5.1); PROTIME 12.9 SECONDS (11.6-15.0); SODIUM 139 mmol/L (136-145); UREA NITROGEN 13 mg/dL (7-18); eGFR NON AFRICAN AMERICAN 89 mL/min (90-120)
--- NOTE | 2019-11-16 14:20 | NUR ---
PT REC'D TO ROOM 3 VIA STRETCHER FROM EGG CASER, S/P PPM PLACEMENT. MONITORS ESTAB, PT AWAKE AND COOPERATIVE. SEE CHECK EMBOSSER. ALARMS ON AND C/L IN REACH.
--- NOTE | 2019-11-16 14:35 | NUR ---
PT SITTING UP IN BED, VSS. L CHEST DSG C/D/I, NO DRAINAGE OR SWELLING. PT GIVEN DIET COLA AND CRACKERS PER REQUEST. ALARMS ON AND C/L IN REACH.
--- NOTE | 2019-11-16 15:05 | NUR ---
L CHEST DSG C/D/I, PT DENIES PAIN OR NEEDS. ALARMS ON AND C/L IN REACH.
--- NOTE | 2019-11-16 15:08 | NUR ---
SPOKE WITH JOHANN, PTS , UPDATE GIVEN, DISCHARGE INSTRUCTIONS REVIEWED. PLAN FOR PT D/C AT 1615.
--- NOTE | 2019-11-16 16:00 | NUR ---
PIV D/C'D INTACT, DSG APPLIED. PT ASSISTED UP TO GET DRESSED.
--- NOTE | 2019-11-16 16:15 | NUR ---
ALL D/C INSTRUCTIONS REVIEWED WITH PT, PT VERBALIZES UNDERSTANDING. PT D/C'D TO PRIVATE VEHICLE WITH , PT HAS ALL PAPERWORK, PRESCRIPTION AND BELONGINGS.
--- NOTE | 2019-11-17 10:43 | OP ---
PATIENT NAME: MARTINA COULTER MEDICAL RECORD: [id number] :48 LOCATION:D.CAT ADMISSION DATE: SURGEON: PRASHANTH REYES MD DATE OF OPERATION: 11/16/2019 PREOPERATIVE DIAGNOSIS: Sick sinus with pauses. POSTOPERATIVE DIAGNOSIS: Sick sinus with pauses. PROCEDURE: Creation of pacemaker pocket with a central access and placement of the pacemaker in the pocket with closure. ASSISTANT PROFESSOR OF BUSINESS: Dr. Quincy Wallace. GENERAL SURGEON: Dr. Prashanth Reyes. This is a cosurgeon case. My involvement in the operation included local infiltration below the left clavicle. A transverse incision was then accomplished inferior to the left clavicle. Sharp dissection was carried down to the level of the pectoralis fascia. A subcutaneous pocket was created in a caudad direction. Through the pocket, I accessed the left subclavian vein easily. A guidewire passed easily. This was visualized under fluoroscopy. A 9-Ecuadorean dilator sheath was advanced. Through the sheath, I advanced the ventricular lead. The Peel-Away sheath was then peeled away. Dr. Quincy Wallace then positioned the lead and appropriate thresholds were obtained. I then sutured the lead to the underlying pectoralis fascia with 2-0 TiCron times 2. Over the secondary wire, a 7-Ecuadorean dilator sheath was advanced. The dilator and wire were removed. Through the sheath, the atrial lead was advanced. The Peel-Away sheath was removed. Dr. Quincy Wallace then positioned the atrial lead. Appropriate thresholds were obtained. The lead was sutured to the underlying pectoralis fascia with 2-0 TiCron times 2. Additional 2-0 Tycron was used around the medial aspect of the leads to prevent backbleeding. The lead serial numbers were confirmed. They are placed within the ventricular and atrial docks of the pacemaker generator and then locked into place. I tried to dislodge the lead and was unable to do so indicating that they were well placed. The pacemaker was then placed in the pacemaker pocket with care paid to place the leads posterior to the pacemaker generator. Pacemaker generator was sutured to the underlying pectoralis fascia with a 2-0 TiCron times 1. I irrigated the pacemaker pocket. There was no bleeding. The closure consisted of a deep adipose layer with interrupted 3-0 Vicryls. The subdermis was approximated with interrupted 3-0 Vicryls. The skin was approximated with a running intracuticular 5-0 Monocryl. A sterile dressing was applied. I then examined the pacemaker under fluoroscopy. The leads appeared to be well placed. The pacemaker generator looked good. I noted no evidence of retained foreign body. I noted no radiographic evidence of complication. The patient was then conveyed back to the post-cardiac catheterization area. There is no need for the patient to follow up with me in the office unless he develops a complication related to this operative procedure. OPERATIVE REPORT [id number] MARTINA COULTER TRANSINT:[id number] Voice Confirmation ID: [id number] DOCUMENT ID: [id number] PRASHANTH REYES MD at 1043 CC: QUINCY YOUNG MD [id number] DICTATION DATE: 11/16/19 1605 HASSOCK MAKER: 11/16/19 2150 DEP CLI 11/16/19 [id number] [place] [address]
--- NOTE | 2019-11-20 10:54 | OP ---
PATIENT NAME: ABRAHAM SOLORIO MEDICAL RECORD: [id number] :48 LOCATION:D.CAT ADMISSION DATE: SURGEON: DELORIS YOUNG MD DATE OF OPERATION: 11/16/2019 PROCEDURE: Lead portion of permanent pacer placement. INDICATION: Sick sinus syndrome with pauses. SURGEON: Justin Dempsey MD DESCRIPTION OF PROCEDURE: After the left subclavian vein was cannulated via the modified Seldinger technique via Dr. Dempsey, first under fluoroscopic guidance, I placed the RV lead in the RV apex without difficulty. After adequate R waves and thresholds were obtained, again under fluoroscopic guidance, I placed the right atrial lead in the right atrial appendage without any difficulty. After adequate fibrillatory waves and resistance was assured, we then attached the leads to the appropriate poles of the generator and the pocket was closed via Dr. Dempsey. IMPRESSION: Successful lead portion of permanent pacemaker placement for Abraham Solorio. ESTIMATED BLOOD LOSS: Minimal. COMPLICATIONS: None. DISPOSITION: To the floor, stable. TRANSINT:[id number] Voice Confirmation ID: [id number] DOCUMENT ID: [id number] DELORIS YOUNG MD at 1054 CC: [id number] DICTATION DATE: 11/16/19 1353 TUFTING CREELER: 11/16/19 1700 DEP CLI 11/16/19 [id number] [place] [address]
== END 2019-11-16 16:15 | disposition home or self-care (01) ==
LOC: D.CATH 11:17
PROVIDERS: ATTEND Internal Medicine Interventional Cardiology
DX: I49.5 Sick sinus syndrome (principal); I48.91 Unspecified atrial fibrillation; E11.9 Type 2 diabetes mellitus without complications; Z79.84 Long term (current) use of oral hypoglycemic drugs; I10 Essential (primary) hypertension